=== PATIENT | female | born 1970 | race Caucasian/White ===

== ENCOUNTER 2017-06-21 12:35 | Emergency (ER) | payer SELFPAY ==
[~2017-06-21] VITALS: Ht 153.7 cm; Wt 62.8 kg
[~2017-06-21 12:35] MED LIST: INSU10SU8 SUBQ; NOVN SUBQ; PREN1SGL44 PO
[2017-06-21 12:40] VITALS: BP 181/86
--- NOTE | 2017-06-21 12:57 | NUR ---
Pt taken to bed 6.
--- NOTE | 2017-06-21 13:07 | NUR ---
46/F c/o chest pain that started yesterday. Describes pain as stabbing, non radiating, 07/11, intermittent. Pt states "It started while I was at work yesterday. I think it is from stress because they are pushing me to finish my work in 6/12 hours and I don't know if that's why. I felt like I couldn't breathe." Pt states she went home and took Ibuprofen with relief. Pt states she woke up this morning with the same pain. Denies medical hx. Skin warm and dry, normal in color for ethnicity. AOX4, clear speech, nepali speaking. NSR 61, no ectopy. O2 sat 97% on room air. VSS. Son at bedside.
--- NOTE | 2017-06-21 13:19 | NUR ---
Patient being evaluated by Dr. Dunlap at bedside.
[2017-06-21] MEDS ORDERED: KETOROLAC 60 MG/2 ML VIAL IM ONE (13:20)
[2017-06-21 14:08] VITALS: BP 157/90
== END 2017-06-21 14:05 | disposition home or self-care (01) ==
LOC: MERGE 12:35 → EDBD 12:35 → MED 12:35
DX: R07.89 Other chest pain (principal); R06.02 Shortness of breath; Z88.0 Allergy status to penicillin
CPT/HCPCS: 96372; 99283; J1885; 93005